=== PATIENT | female | born 1955 | race African-American/Black ===

== ENCOUNTER → 2016-10-17 | Outpatient (CLI) | payer OTHER ==
[~2016-10-17] MED LIST: ALPRAZOLAM PO; ALPRAZOLAM0.25 MG PO; ASPIRIN PO; ASPIRIN81 M2 PO; ATENOLOL PO; ATENOLOL50 MG PO; CENTRUM SILVER PO; COMPAZINE10 MG PO; DARVOCET-N 1001 TAB; DEPO-ESTRADIO5 MG/ML INJ; DICYCLOMINE HCL20 MG PO; GLUCOTROL PO; HCTZ PO; HORMONE SHOT; HYDROCODON-ACE1 EAC7 PO; IBUPROFEN PO; IMITREX PO; LEVAQUIN PO; LIPITOR40 MG PO; LODINE; LOMOTIL TABLET1 TAB PO; LOTREL; MEGA MULTI FOR1 EACH PO; MIDRIN CAPSULE1 CAP PO; MOTRIN; NAPROXEN PO; NEPTAZANE25 MG; NEXIUM PO; NITRO-DUR 0.1M0.1 MG; NITROGLYGERIN0.4 MG SL; NITROGYLCERIN SUBLINGUAL; PEPCID AC20 M2 PO; PRILOSEC40 MG; TOPAMAX PO; VICODIN 5/1 TAB 5/50 PO; VICODIN 5/500 T1 TAB PO; VIT E PO; VITAMIN D400 UNI2 PO; XANAX1 MG PO; ZOFRANODT PO; [UNRECOGNIZED DRUG - OTHER]
--- NOTE | ~2016-10-17 | MR17 ---
[facility] A Service of [facility] & [facility] RADIOLOGY TEXT RESULTS PATIENT: DEE VASQUEZ LOCATION: CMRI : 59 UNIT #: [id number] AGE: [address]: Erick Scales MD SEX: F ORDER DR: [id number] [facility] [address] [place], [place] [address] [id number] O MR#: [id number] Acc #: [id number] NAME: DEE VASQUEZ : 1955 SEX: F STUDY DATE/TIME: 10/17/2016 9:07 UNIT: CMRI ROOM: STUDY DESCRIPTION: MR Brain WWo Contrast Attending Physician: Erick Scales M.D. Referring Physician: Erick Scales M.D. Ordering Physician: Erick Scales M.D. Primary Care Physician: Erick Scales M.D. MRI CENTER REPORT This report is preliminary unless electronic signature is present. EXAM MRI brain with and without contrast HISTORY Memory loss, memory problems for 2 years worsening per patient and family. History of migraines for 3-4 years. No history of cancer. COMMENTS MRI of the brain was performed prior to and following intravenous administration of 14 mL of MultiHance. Comparison is from 03/09/2009. FINDINGS There is no evidence for a recent ischemic insult on the diffusion series. No Chiari-I malformation. Midline structures are unremarkable. No MRI evidence for a recent intracranial hemorrhage. There is some susceptibility seen at the periphery of the right cerebellar hemisphere which is probably due to remote blood product or mineral deposition. It is small and not associated mass effect. Comparison study does not include the susceptibility sequence. There is no extraaxial fluid collection. Motion limiting sequences were utilized due to the patient's difficulty cooperating. The major intracranial flow voids are maintained. There is extensive white matter disease as well as extensive signal abnormality in the basal ganglia and thalami. This is likely due to small vessel disease and it has progressed from 2008. Signal abnormality in the brainstem is also moderate bilateral. There is no particular pattern of volume loss of findings together would be most consistent with a multiinfarct type dementia. Please correlate further clinically. There is no hydrocephalus. Following contrast administration there is no pathologic intracranial enhancement or intracranial mass lesion. [facility] A Service of [facility] & [facility] RADIOLOGY TEXT RESULTS PATIENT: DEE VASQUEZ LOCATION: [facility] : 59 UNIT #: [id number] AGE: [address]: Erick Scales MD SEX: F ORDER DR: IMPRESSION 1. No evidence for a recent ischemic insult on the diffusion series. 2. Extensive probable sequelae of small vessel disease progressed from the study of 2008. Small amount of susceptibility right cerebellar hemisphere probably due to remote small hemorrhage or mineral deposition. Dictated by... Barbie Cochran M.D. THIS IS AN ELECTRONICALLY VERIFIED REPORT Barbie Cochran M.D. at 10/18/2016 8:25 AM YOANDY/rosalva TD: 10/18/2016 00:04 JOB #: [id number] MRI CENTER REPORT Page 1 of 1 COPY
[2016-10-17 11:00] LABS: POC - CREATININE 0.68 mg/dL (0.44-1.03); POC - GFR >60.0 mL/min (>60)
== END | disposition home or self-care (01) ==
LOC: CMRI 08:00
PROVIDERS: Family Medicine
DX: R41.3 Other amnesia (principal); N20.0 Calculus of kidney
CPT/HCPCS: 70553; 82565; A9577

== ENCOUNTER 2016-11-09 11:16 | Emergency (ER) | payer OTHER ==
--- NOTE | ~2016-11-09 | CT4 ---
[facility] A Service of [facility] & [facility] RADIOLOGY TEXT RESULTS PATIENT: DEE VASQUEZ LOCATION: CFTX : 59 UNIT #: [id number] AGE: [address]: Taisha Askew APRN SEX: F ORDER DR: [id number] [facility] [address] [place], [place] [address] [id number] E MR#: [id number] Acc #: [id number] NAME: DEE VASQUEZ : 1955 SEX: F STUDY DATE/TIME: 11/09/2016 12:33 UNIT: CFTX ROOM: STUDY DESCRIPTION: CT Abd and Pelv Wo Cont Attending Physician: Taisha Askew A.P.R.N. Referring Physician: Jackson Padilla M.D. Ordering Physician: Krys Small M.D. Primary Care Physician: Erick Scales M.D. MEDICAL IMAGING REPORT This report is preliminary unless electronic signature is present EXAM CT of abdomen and pelvis without contrast. INDICATIONS Low back pain radiating to left leg and left flank pain for a week. COMPARISON There is no comparison. TECHNIQUE Axial 3 mm images were obtained through the abdomen and pelvis without IV or oral contrast. This CT exam was performed with one or more of the following radiation dose reduction techniques: automatic exposure control, adjustment of mA and/or kV according to patient size, and iterative reconstruction. FINDINGS The lung bases are clear. The liver shows mild decreased density with a Hounsfield unit measurement of 29, where as the spleen is 43. The liver is slightly prominent. The gallbladder is normal. The spleen, pancreas and adrenal glands, and kidneys are normal except for a right renal cyst measuring 13 mm in diameter. There are no ureteral stones. The aorta is normal in size. There is no adenopathy. The bowel, including the appendix is normal. There is no evidence of diverticulitis. The bladder is normal. The uterus has been removed and there are no adnexal masses. There are degenerative changes throughout the lumbar spine. IMPRESSION 1. There were no urinary stones and no cause for the patient's pain is identified. 2. Mild diffuse fatty change throughout the flattened enlarged liver. 3. 13 mm right renal cyst. [facility]. [facility] A Service of [facility] & [facility] RADIOLOGY TEXT RESULTS PATIENT: DEE VASQUEZ LOCATION: [facility] : 59 UNIT #: [id number] AGE: [address]: Taisha Askew APRN SEX: F ORDER DR: 4. Otherwise, normal. Dictated by... Nico Stearns M.D. THIS IS AN ELECTRONICALLY VERIFIED REPORT Nico Stearns M.D. at 11/10/2016 7:03 AM CELE/osvaldo TD: 11/09/2016 21:39 JOB #: [id number] MEDICAL IMAGING REPORT Page 1 of 1 COPY
[~2016-11-09 11:16] MED LIST changes: -ATENOLOL50 MG PO; -CENTRUM SILVER PO; -DICYCLOMINE HCL20 MG PO; -HYDROCODON-ACE1 EAC7 PO; -IBUPROFEN PO; -LIPITOR40 MG PO; -MEGA MULTI FOR1 EACH PO; -PEPCID AC20 M2 PO; -VITAMIN D400 UNI2 PO; -XANAX1 MG PO
[2016-11-09 12:16] LABS: URINE SOURCE CLEAN CATCH
[2016-11-09 12:28] LABS: BASOPHIL# 0.1 X10e3 (0-0.3); BASOPHIL% 0.7 % (0-2.5); EOSINOPHIL# 0.3 X10e3 (0-0.7); EOSINOPHIL% 3.4 % (0.0-7.0); HEMATOCRIT 39.8 % (35.0-45.0); LYMPHOCYTE# 2.8 X10e3 (1.0-3.5); LYMPHOCYTE% 32.7 % (17.0-45.0); MEAN CELL VOLUME 94.9 FL (83-96); MEAN CORPUSCULAR HGB CONC 32.7 g/dL (30-36); MEAN PLATELET VOLUME 9.8 FL (6.5-11.5); MONOCYTE# 0.8 X10e3 (0-1.0); NEUTROPHIL# 4.6 X10e3 (1.5-7.1); NEUTROPHIL% 54.2 % (40-75); PLATELET COUNT 233 X10e3 (140-420); RED BLOOD COUNT 4.19 X10e (3.90-5.30); RED CELL DISTRIBUTION WIDTH 12.5 % (11.0-15.5); WHITE BLOOD COUNT 8.5 X10e3 (4.0-10.5)
[2016-11-09 12:30] LABS: URINE APPEARANCE CLEAR; URINE BILIRUBIN NEG (NEG); URINE BLOOD NEG (NEG); URINE COLOR YELLOW; URINE GLUCOSE >1000 MG/DL (NEG); URINE KETONE NEG (NEG); URINE LEUKOCYTE ESTERASE NEG (NEG); URINE NITRATE NEG (NEG); URINE PROTEIN NEG (NEG); URINE SPECIFIC GRAVITY 1.014 (1.003-1.035)
[2016-11-09 12:30] LABS: DIFF IND NO
[2016-11-09 12:34] LABS: CULTURE INDICATED? NO
[2016-11-09 12:48] LABS: BUN/CREATININE RATIO 13.75; CALCIUM SERUM 8.9 mg/dL (8.4-10.2); CREATININE SERUM 0.8 mg/dL (0.6-1.4); GLOM FILT RATE Estimated 93.6 mL/min (>60); POTASSIUM 3.5 mmol/L (3.5-5.1)
== END 2016-11-09 13:45 | disposition home or self-care (01) ==
LOC: CED 11:16 → CFTX 11:16
PROVIDERS: Nurse Practitioner
DX: M54.42 Lumbago with sciatica, left side (principal); M54.41 Lumbago with sciatica, right side; R10.9 Unspecified abdominal pain; X50.9XXA Other and unspecified overexertion or strenuous movements or postures, initial encounter
CPT/HCPCS: 36415; 74176; 80048; 81003; 82947; 85025; 99284; J1885

== ENCOUNTER 2016-12-21 13:51 | Observation (INO) | payer OTHER ==
[~2016-12-21] VITALS: Ht 160 cm; Wt 73.1 kg
--- NOTE | ~2016-12-21 | HP ---
Unit #: [id number] #: [id number] Patient: DEE VASQUEZ [id number] [facility]. [place], [place] [address] [id number] I MR#: [id number] NAME: DEE VASQUEZ. ROOM: 551 Age: 61 Sex: F Admission Date: 12/21/2016 : 1955 Attending Physician: Anastasia Medrano M.D. Primary Care Physician: Erick Scales M.D. HISTORY AND PHYSICAL CHIEF COMPLAINT Abdominal pain. DISCUSSION This is a 61-year-old female, with history of diabetes, dyslipidemia, hypertension, sickle cell trait, chronic back pain, anxiety, sleep apnea, migraine, alcohol abuse, tobacco abuse. She presented to the emergency room with chief complaint of having abdominal pain which she said is going on for one month. It got worse on 10 of December and is not improving, even having also nausea and she came to the emergency room today and eventually being admitted for further workup and evaluation. She was also found to have abnormal AST 44 and ALT 66, lipase 136. Initially she was admitted to surgery, [facility] but later on emergency room doctor told me that [facility] wants [facility] to admit the patient, and they will do a consult. She drinks alcohol on a daily basis. She denied chest pain. She denies nausea, vomiting, diarrhea, or any other complaints. Mainly she is pointing towards the epigastric pain radiating to right upper quadrant. PAST MEDICAL HISTORY 1. History of diabetes. 2. Dyslipidemia. 3. Hypertension. 4. Sickle cell trait. 5. Chronic back pain. 6. History of anxiety. 7. Obstructive sleep apnea not on CPAP. 8. History of migraine. 9. Tobacco abuse. 10. Alcohol abuse. PAST SURGICAL HISTORY 1. Hysterectomy. 2. Right carpal tunnel release. 3. Colonoscopy. SOCIAL HISTORY She smokes few cigars daily. She drinks alcohol on daily basis. She says she drinks wine and also she drinks beer on daily basis. Also, as per old records, she has history of marijuana, cocaine, and methamphetamine in the past. She declined at this time. FAMILY HISTORY No significant family history. Unit #: [id number] #: [id number] Patient: VASQUEZ,DEE A HOME MEDICATIONS Medications from home is the followin. Atenolol 50 mg twice daily 2. Lipitor 40 mg twice daily 3. Glucotrol 4 mg twice daily 4. Xanax 1 mg p.r.n. 5. Ibuprofen 500 mg p.r.n. 6. Hydrocodone 5/325 mg p.r.n. 7. Centrum Silver one tablet daily 8. Vitamin D 400 IU daily REVIEW OF SYSTEMS Negative except in history of present illness. PHYSICAL EXAMINATION GENERAL: Middle-aged female lying in the bed comfortably, currently not in any distress. She is alert, awake, and oriented x3, comfortable, not in any distress. VITAL SIGNS: Current vitals are following, temperature 98.6, heart rate 64, respiratory rate 16, and blood pressure 179/83. HEENT EXAMINATION: Pupils equal reactive to light and accommodation. Head is normocephalic and atraumatic. NECK: Supple. No jugular venous distention. HEART: S1 and S2, regular rhythm. LUNGS: Clear to auscultation bilaterally. No rhonchi. No wheezing. ABDOMEN: Soft, epigastric tenderness positive, no guarding, no rigidity. EXTREMITIES: Inspection normal. No cyanosis, no clubbing, and no edema. NEUROLOGIC: Alert and oriented x4. Cranial nerves II through XII intact. No focal neurologic deficit. PSYCH: Normal mood and affect. SKIN: Warm and dry. DIAGNOSTIC STUDIES LABORATORY: Laboratory workup is the following, troponin less than 0.05. Chemistries, sodium 136, potassium 3.8, chloride 101, glucose 136, BUN 14, creatinine 0.5. AST 46, ALT 66, lipase 136. Urinalysis is clear. White count 11, hemoglobin 13, hematocrit 41, platelets 244. IMAGING: CT of the abdomen is negative for acute finding. ASSESSMENT/PLAN 1. Abdominal pain mostly epigastric region with elevated lipase, differential diagnosis is acute pancreatitis vs peptic ulcer disease vs gallbladder disease, able to keep the patient n.p.o., IV Protonix, Zofran and morphine for pain control, and ask the [facility] to evaluate, will get ultrasound of the gallbladder in the morning, repeat lipase in the morning. 2. Abnormal LFT most likely secondary to alcoholic liver disease. 3. History of diabetes, hold p.o. medications and place on sliding scale. 4. Dyslipidemia. 5. Hypertension. 6. Sickle cell trait. 7. History of chronic back pain. 8. History of anxiety. 9. Obstructive sleep apnea. 10. Migraine. 11. Tobacco abuse. Unit #: [id number] #: [id number] Patient: DEE VASQUEZ 12. Alcohol abuse. 13. DVT prophylaxis. Will place the patient on Lovenox. Dictated by Subha Clark/uyen TD: 12/22/2016 12:06 JOB #: [id number] HISTORY AND PHYSICAL Page 1 of 1 X X HISTORY AND PHYSICAL
--- NOTE | ~2016-12-21 | OR ---
Unit #: [id number] #: [id number] Patient: DEE VASQUEZ [id number] [address] [address] [id number] I MR#: [id number] NAME: DEE VASQUEZ ROOM: 55 Date of Procedure: 12/24/2016 Admission Date: 12/21/2016 Surgeon: Chan Benitez Jr., M.D. : 1955 Attending Physician: Romain Beckford M.D. Primary Care Physician: Erick Scales M.D. OPERATIVE REPORT INDICATIONS FOR PROCEDURE The patient is a 61-year-old white female, who was admitted with complaining of mid epigastric abdominal pain. Workup so far has been negative with her gallbladder appearing to be normal. On workup, it was felt she could have occult ulcer disease. She is brought to the endoscopy suite at this time for upper endoscopy. PREOPERATIVE DIAGNOSIS Possible occult ulcer disease with midepigastric abdominal pain. POSTOPERATIVE DIAGNOSIS Normal exam. ANESTHESIA MAC anesthesia. PROCEDURE PERFORMED Flexible fiberoptic esophagogastroduodenoscopy. DESCRIPTION OF PROCEDURE The patient was positioned in Guerra position with left side down. After being given MAC anesthesia, the Olympus XQ scope was passed through the proximal esophagus. Entire esophagus was examined. There was no evidence of any significant esophagitis, no evidence of any stenosis. The scope was advanced through the GE junction, into the cardia, and down to the fundic and antral regions of the stomach and retroflexed back up to the area of the cardia. There was no evidence of hiatal hernia present. The LES was normal in appearance. The scope was then straightened and advanced down the distal stomach. The stomach distended well without evidence of rigidity. No evidence of any gastric ulcer disease and no evidence of any significant gastritis. The scope was advanced through the pylorus into the duodenal bulb and down to the second portion of the duodenum. The entire duodenal portion examination was within normal limits. The pylorus appeared to be slightly stenotic, but no evidence of any ulcerations. Second portion of the duodenum appeared normal. The first portion also appeared normal. The scope was slowly removed. The patient tolerated the procedure well and discharged back to floor in satisfactory condition. Dictated by... Chan Benitez Jr., M.D. Unit #: [id number] #: [id number] Patient: DEE VASQUEZ Raza YOUSIF/rich TD: 12/25/2016 01:13 JOB #: [id number] OPERATIVE REPORT Page 1 of 1 X Chan Benitez MD PROCEDURE OPERATIVE NOTE
--- NOTE | ~2016-12-21 | DS ---
Unit #: [id number] #: [id number] Patient: DEE VASQUEZ [id number] [address] [place], [place] [address] [id number] I MR#: [id number] NAME: DEE VASQUEZ ROOM: 551 Age: 61 Sex: F Admission Date: 12/21/2016 : 1955 Discharge Date: 12/24/2016 Attending Physician: Romain Beckford M.D. Primary Care Physician: Erick Scales M.D. DISCHARGE SUMMARY PERTINENT HISTORY AND HOSPITAL COURSE The patient is a 61-year-old woman with a history of diabetes mellitus, who presents to the emergency room with symptoms of abdominal pain, intermittent, ongoing over the past month. During her admission, the patient underwent a CAT scan of the abdomen that demonstrated no acute abnormality in the abdomen and pelvis, more diverticulosis without evidence of diverticulitis. The patient underwent a HIDA scan, which was normal. EGD which was normal. At discharge, the patient will be discharged on Bentyl mg three times a day as needed for abdominal cramps. At discharge, the patient's vitals were stable. Gross pelvic exam normal and no other complaints. DISCHARGE DIAGNOSES 1. Dyspepsia. 2. Gastroesophageal reflux disease. 3. Diabetes mellitus. DISCHARGE MEDICATIONS Atenolol 50 mg p.o. b.i.d., Lipitor 40 mg p.o. once daily, Glucotrol p.o. b.i.d., Xanax 1 mg p.o. t.i.d. p.r.n. for anxiety, hydrocodone 5/325 mg p.o. t.i.d. p.r.n. for anxiety, vitamin D 400 units once daily, Bentyl p.o. t.i.d. p.r.n. for abdominal cramps, and Pepcid 20 mg tablet one p.o. once daily. CONSULTATION [facility]. DISCHARGE INSTRUCTIONS Follow up with primary care physician. Dictated by... Subha Roberts/rich TD: 12/28/2016 03:44 JOB #: [id number] Unit #: [id number] #: [id number] Patient: DEE VASQUEZ A DISCHARGE SUMMARY Page 1 of 1 X X DISCHARGE SUMMARY
--- NOTE | ~2016-12-21 | US67 ---
[facility] A Service of [facility] / [facility] RADIOLOGY TEXT RESULTS PATIENT: DEE VASQUEZ LOCATION: [place] [address]- : [birth year] UNIT #: [id number] AGE: [address]: TATYANA RODRÍGUEZUJ V SEX: F ORDER DR: [id number] [facility] [address] [place], [place] [address] [id number] I MR#: [id number] Acc #: [id number] NAME: DEE VASQUEZ. : 1955 SEX: F STUDY DATE/TIME: 12/22/2016 9:42 UNIT: [facility] ROOM: [facility] STUDY DESCRIPTION: US Gallbladder Attending Physician: Anastasia Medrano M.D. Ordering Physician: Isra Ball D.O. Primary Care Physician: Eirck Scales M.D. MEDICAL IMAGING REPORT This report is preliminary unless electronic signature is present EXAM Gallbladder ultrasound COMPARISON CT abdomen and pelvis dated December 21, 2016 and abdominal ultrasound dated July 27, 2007. INDICATIONS A 61 old female with right upper quadrant abdominal pain intermittently over last month, associate with nausea and emesis. Episodes have worsened in the last 2 weeks. FINDINGS Visualized portions of the pancreas are grossly unremarkable. The liver appears coarse. Portal architecture is not well seen. Hepatic length is 17.3 cm. The main portal vein is patent. The liver is also echogenic relative to the right kidney, most consistent with steatosis. Right kidney is normal in size and appearance aside for a single hypoechoic lesion with through transmission measuring 1 cm x 0.9 cm x 1.3 cm with no internal color flow. This has density consistent with a benign cyst on CT of yesterday. The gallbladder is normal. There is no pericholecystic fluid. Normal common bile duct caliber of 2 mm. IMPRESSION 1. Hepatomegaly with hepatic steatosis. No evidence of cirrhosis. No evidence of acute cholecystitis. No cholelithiasis. 2. Normal biliary caliber. 3. Benign cyst in the superior pole right kidney. Dictated by... [facility] A Service of [facility] / [facility] RADIOLOGY TEXT RESULTS PATIENT: DEE VASQUEZ LOCATION: [place] [address] : [birth year] UNIT #: [id number] AGE: [address]: VINCE RODRÍGUEZ V SEX: F ORDER DR: Kobi Reyes M.D. THIS IS AN ELECTRONICALLY VERIFIED REPORT Kobi Reyes M.D. at 12/26/2016 8:09 AM Patel TD: 12/22/2016 14:55 JOB #: [id number] MEDICAL IMAGING REPORT Page 1 of 1 COPY
--- NOTE | ~2016-12-21 | CT2 ---
[facility] A Service of [place] [facility] RADIOLOGY TEXT RESULTS PATIENT: DEE VASQUEZ LOCATION: [facility] 55- : 59 UNIT #: [id number] AGE: [address]: VINCE RODRÍGUEZ V SEX: F ORDER DR: [id number] [facility] [address] [place], [place] [address] [id number] I MR#: [id number] Acc #: [id number] NAME: DEE VASQUEZ. : 1955 SEX: F STUDY DATE/TIME: 12/21/2016 18:24 UNIT: [facility] ROOM: [facility] STUDY DESCRIPTION: CT Abd and Pelv W Cont Attending Physician: Vince Rodríguez M.D. Ordering Physician: Isra Ball D.O. Primary Care Physician: Erick Scales M.D. MEDICAL IMAGING REPORT This report is preliminary unless electronic signature is present REVISED REPORT SEE ADDENDUM EXAM CT abdomen and pelvis without IV contrast COMPARISON November 09, [address] chest dated October 31, 2005. INDICATION 61-year-old female with diffuse abdominal pain for [address] exam was performed with one or more of the following radiation dose reduction techniques: automatic control, adjustment of mA and/or kV according to patient size, and iterative reconstruction. FINDINGS Axial CT imaging of the abdomen and pelvis was performed after IV administration of 100 mL of Isovue-370. Coronal and sagittal reformats were constructed. There is small fat-containing umbilical hernia. Bulky degenerative facet disease is seen multiple levels of the lower lumbar spine. No acute fractures or suspicious osseous lesions. Small posterior disc protrusions at L3-4 through L5-S1. No acute findings in the imaged lower chest. The liver, gallbladder, pancreas and adrenal glands are within normal limits. There are calcified splenic granulomas. There is a tiny low-density lesion mid pole of the left kidney which is stable from 2005, and consistent with a benign cyst. In the superior pole of the right kidney there is a simple cyst measuring 1.4 cm. Focal scar is seen in the periphery of the mid pole of the right kidney. No hydronephrosis or hydroureter. Urinary bladder is fluid distended but otherwise unremarkable. There has been prior hysterectomy. There are bilateral pelvic phleboliths. No evidence of renal or ureteral calculus. No STS. [facility] A Service of [facility] RADIOLOGY TEXT RESULTS PATIENT: DEE VASQUEZ LOCATION: [place] [address] : [birth year] UNIT #: [id number] AGE: [address]: VINCE RODRÍGUEZ V SEX: F ORDER DR: adnexal masses. Normal bowel caliber. Appendix is normal. There are sigmoid diverticula without evidence of acute diverticulitis. No evidence of bowel obstruction. No free fluid or pneumoperitoneum. No adenopathy. Abdominal aorta is normal in course and caliber, with patency of its main branches. No evidence of venous thrombosis. IMPRESSIONS 1. No acute abnormality in the abdomen, pelvis or imaged lower chest. 2. Sigmoid diverticulosis without evidence of acute diverticulitis. 3. Diffuse moderate degenerative changes of the lower lumbar spine as described in the body of the report. 4. Benign renal cyst. 5. Prior hysterectomy. 6. Fluid distension of the urinary bladder. No CT findings of acute cystitis. Dictated by... Kobi Reyes M.D. THIS IS AN ELECTRONICALLY VERIFIED REPORT Kobi Reyes M.D. at 12/26/2016 8:18 AM VANESA/tommy TD: 12/22/2016 00:11 JOB #: [id number] ADDENDUM There is actually, somewhat increased enhancement pattern geographically at the gallbladder fossa adjacent to the gallbladder and the gallbladder itself appears normal. This is a nonspecific finding which may be due to aberrant venous drainage of the gallbladder Dictated by... Kobi Reyes M.D. THIS IS AN ELECTRONICALLY VERIFIED REPORT Kobi Reyes M.D. at 12/28/2016 6:45 PM VANESA/tommy TD: 12/22/2016 00:23 JOB #: [id number] CC: Sovera/invision Please Delete MEDICAL IMAGING REPORT Page 1 of 1 COPY
--- NOTE | ~2016-12-21 | NM22 ---
[facility] A Service of [facility] RADIOLOGY TEXT RESULTS PATIENT: DEE VASQUEZ LOCATION: [place] [address] : [birth year] UNIT #: [id number] AGE: [address]: VINCE RODRÍGUEZ V SEX: F ORDER DR: [id number] [place] [address] [facility]. [place], [place] [address] [id number] I MR#: [id number] Acc #: [id number] NAME: DEE VASQUEZ : 1955 SEX: F STUDY DATE/TIME: 12/23/2016 10:13 UNIT: [facility] ROOM: [facility] STUDY DESCRIPTION: NM Hepatobiliary W GB Pharm Attending Physician: Vince Rodríguez Ordering Physician: Chan Benitez Jr., M.D. Primary Care Physician: Erick Scales M.D. MEDICAL IMAGING REPORT This report is preliminary unless electronic signature is present EXAM Hepatobiliary scan, 12/23 INDICATIONS Abdominal pain and spasms with diarrhea, nausea and vomiting and bloating. Symptoms started on December 10 of this year. FINDINGS Imaging was obtained of the abdomen for 60 minutes after the IV administration of 4.8 mCi of technetium 99m - Choletec. Comparison made with gallbladder ultrasound from 12/22/2016. There is symmetric uptake by the liver. There is prompt excretion in the biliary system and small bowel within 30 minutes. Gallbladder activity is also seen within 30 minutes. There is no evidence of acute cholecystitis. Following the IV administration of 1.5 mcg of Kinevac, gallbladder ejection fraction is normal at 68%. IMPRESSION Normal hepatobiliary scan. Normal gallbladder ejection fraction of 68% after Kinevac stimulation. Dictated by... Ken Lira Jr., M.D. THIS IS AN ELECTRONICALLY VERIFIED REPORT Ken Lira Jr., M.D. at 12/24/2016 7:10 AM PABLOK/genevieve TD: 12/23/2016 22:39 JOB #: [id number] MEDICAL IMAGING REPORT [facility] A Service of [facility] RADIOLOGY TEXT RESULTS PATIENT: DEE VASQUEZ LOCATION: [facility] [id number] : [birth year] UNIT #: [id number] AGE: [address]: VINCE RODRÍGUEZ V SEX: F ORDER DR: Page 1 of 1 COPY
[2016-12-21 16:02] LABS: URINE SOURCE CLEAN CATCH
[2016-12-21 16:03] LABS: BASOPHIL# 0.1 X10e3 (0-0.3); BASOPHIL% 0.8 % (0-2.5); EOSINOPHIL# 0.2 X10e3 (0-0.7); EOSINOPHIL% 2.1 % (0.0-7.0); HEMATOCRIT 41.5 % (35.0-45.0); HEMOGLOBIN 13.6 gm/dL (12.0-16.0); LYMPHOCYTE# 3.2 X10e3 (1.0-3.5); LYMPHOCYTE% 28.7 % (17.0-45.0); MEAN CELL VOLUME 92.4 FL (83-96); MEAN CORPUSCULAR HEMOGLOBIN 30.3 PG (28-34); MEAN CORPUSCULAR HGB CONC 32.8 g/dL (30-36); MEAN PLATELET VOLUME 9.7 FL (6.5-11.5); MONOCYTE# 0.8 X10e3 (0-1.0); MONOCYTE% 7.6 % (3.0-12.0); NEUTROPHIL# 6.8 X10e3 (1.5-7.1); NEUTROPHIL% 60.8 % (40-75); PLATELET COUNT 244 X10e3 (140-420); RED BLOOD COUNT 4.49 X10e (3.90-5.30); RED CELL DISTRIBUTION WIDTH 12.6 % (11.0-15.5); WHITE BLOOD COUNT 11.1 X10e3 (4.0-10.5)
[2016-12-21 16:08] LABS: DIFF IND NO
[2016-12-21 16:09] LABS: URINE APPEARANCE CLEAR; URINE BILIRUBIN NEG (NEG); URINE BLOOD NEG (NEG); URINE COLOR YELLOW; URINE GLUCOSE NEG (NEG); URINE KETONE NEG (NEG); URINE LEUKOCYTE ESTERASE NEG (NEG); URINE NITRATE NEG (NEG); URINE PROTEIN 2+ (NEG); URINE UROBILINOGEN 0.2 MG/DL (NEG)
[2016-12-21 16:13] LABS: URBCS1 AUWI 0-2 /[HPF] (0-2); URINE BACTERIA AUWI NEG (NEGATIVE); URINE SQUAMOUS EPITHELIAL CELL NONE SEEN /[HPF]; UWBCS1 AUWI 0-2 (0-5)
[2016-12-21 16:17] LABS: CULTURE INDICATED? NO
[2016-12-21 17:52] LABS: ALBUMIN SERUM 4.6 g/dL (3.5-5.0); BILIRUBIN, DIRECT 0.1 mg/dL (0.0-0.2); BILIRUBIN,INDIRECT 0.8 mg/dL (0.0-0.9); BILIRUBIN,TOTAL 0.9 mg/dL (0.2-2.0); CALCIUM SERUM 9.6 mg/dL (8.4-10.2); CREATININE SERUM 0.5 mg/dL (0.6-1.4); GLOM FILT RATE Estimated 122.8 mL/min (>60); POTASSIUM 3.8 mmol/L (3.5-5.1); PROTEIN TOTAL SERUM 7.9 g/dL (6.0-8.3)
[2016-12-21 19:35] LABS: POC - CKMB 1.3 ng/mL (0.0-7.9); POC - TROPONIN <0.05 ng/mL (<=0.05)
[2016-12-21] MEDS ORDERED: ATENOLOL50 MG PO (21:01)
[2016-12-21] MEDS ORDERED: LIPITOR40 MG PO (21:02)
[2016-12-21] MEDS ORDERED: GLUCOTROL PO (21:02)
[2016-12-21] MEDS ORDERED: XANAX1 MG PO (21:03)
[2016-12-21] MEDS ORDERED: IBUPROFEN PO (21:04)
[2016-12-21] MEDS ORDERED: HYDROCODON-ACE1 EAC7 PO (21:04)
[2016-12-21] MEDS ORDERED: MEGA MULTI FOR1 EACH PO (21:05)
[2016-12-21] MEDS ORDERED: CENTRUM SILVER PO (21:06)
[2016-12-21] MEDS ORDERED: VITAMIN D400 UNI2 PO (21:07)
[2016-12-22 07:30] LABS: BASOPHIL# 0.1 X10e3 (0-0.3); BASOPHIL% 0.6 % (0-2.5); EOSINOPHIL# 0.1 X10e3 (0-0.7); EOSINOPHIL% 1.2 % (0.0-7.0); HEMATOCRIT 38.8 % (35.0-45.0); LYMPHOCYTE# 2.3 X10e3 (1.0-3.5); LYMPHOCYTE% 28.6 % (17.0-45.0); MEAN CELL VOLUME 93.6 FL (83-96); MEAN CORPUSCULAR HEMOGLOBIN 31.4 PG (28-34); MEAN CORPUSCULAR HGB CONC 33.6 g/dL (30-36); MEAN PLATELET VOLUME 9.9 FL (6.5-11.5); MONOCYTE# 0.6 X10e3 (0-1.0); MONOCYTE% 7.6 % (3.0-12.0); PLATELET COUNT 218 X10e3 (140-420); RED BLOOD COUNT 4.14 X10e (3.90-5.30); RED CELL DISTRIBUTION WIDTH 12.6 % (11.0-15.5); WHITE BLOOD COUNT 8.1 X10e3 (4.0-10.5)
[2016-12-22 07:37] LABS: DIFF IND NO
[2016-12-22 08:08] LABS: ALBUMIN SERUM 4.1 g/dL (3.5-5.0); BILIRUBIN,TOTAL 0.6 mg/dL (0.2-2.0); BUN/CREATININE RATIO 12.85; CALCIUM SERUM 8.6 mg/dL (8.4-10.2); CREATININE SERUM 0.7 mg/dL (0.6-1.4); GLOM FILT RATE Estimated 109.9 mL/min (>60); POTASSIUM 3.6 mmol/L (3.5-5.1); PROTEIN TOTAL SERUM 7.2 g/dL (6.0-8.3)
[2016-12-22 08:15] LABS: THYROID STIMULATING HORMONE 2.61 uIU/ml (0.34-5.60)
[2016-12-22 08:22] LABS: FREE THYROXIN (T4) 0.86 ng/dL (0.58-1.64)
[2016-12-23 07:51] LABS: HEMATOCRIT 41.1 % (35.0-45.0); HEMOGLOBIN 13.7 gm/dL (12.0-16.0); MEAN CELL VOLUME 93.2 FL (83-96); MEAN CORPUSCULAR HGB CONC 33.3 g/dL (30-36); MEAN PLATELET VOLUME 9.9 FL (6.5-11.5); RED BLOOD COUNT 4.41 X10e (3.90-5.30); RED CELL DISTRIBUTION WIDTH 12.8 % (11.0-15.5); WHITE BLOOD COUNT 8.9 X10e3 (4.0-10.5)
[2016-12-23 08:34] LABS: BILIRUBIN,TOTAL 0.6 mg/dL (0.2-2.0); CALCIUM SERUM 8.9 mg/dL (8.4-10.2); CREATININE SERUM 0.7 mg/dL (0.6-1.4); GLOM FILT RATE Estimated 109.9 mL/min (>60); POTASSIUM 3.7 mmol/L (3.5-5.1); PROTEIN TOTAL SERUM 7.3 g/dL (6.0-8.3)
[2016-12-24] MEDS ORDERED: PEPCID AC20 M2 PO (14:01)
[2016-12-24] MEDS ORDERED: DICYCLOMINE HCL20 MG PO (14:01)
== END 2016-12-24 17:00 | disposition home or self-care (01) ==
LOC: CED 13:51 → CEDOF 20:45 → C5B 20:45 → CEDOF 21:56 → CED 21:56 → CEDOF 12-22 06:37 → C5B 12-22 10:08 → CEDOF 12-22 10:08 → C5B 12-23 10:14
PROVIDERS: Emergency Medicine; Surgery
PROC: 0DJ08ZZ Inspection of Upper Intestinal Tract, Via Natural or Artificial Opening Endoscopic (ICD-10-PCS; principal; 2016-12-21)
DX: R10.13 Epigastric pain (principal); K76.0 Fatty (change of) liver, not elsewhere classified; R16.0 Hepatomegaly, not elsewhere classified; K57.30 Diverticulosis of large intestine without perforation or abscess without bleeding; N28.1 Cyst of kidney, acquired; M51.36 Other intervertebral disc degeneration, lumbar region; K82.9 Disease of gallbladder, unspecified; G47.33 Obstructive sleep apnea (adult) (pediatric); E78.5 Hyperlipidemia, unspecified; I10 Essential (primary) hypertension; E11.9 Type 2 diabetes mellitus without complications; Z79.84 Long term (current) use of oral hypoglycemic drugs; D57.3 Sickle-cell trait; G43.909 Migraine, unspecified, not intractable, without status migrainosus; R01.1 Cardiac murmur, unspecified; M54.30 Sciatica, unspecified side; F32.9 Major depressive disorder, single episode, unspecified; Z79.1 Long term (current) use of non-steroidal anti-inflammatories (NSAID); F10.10 Alcohol abuse, uncomplicated; Z79.899 Other long term (current) drug therapy; F17.290 Nicotine dependence, other tobacco product, uncomplicated; Z90.710 Acquired absence of both cervix and uterus; Z98.890 Other specified postprocedural states
CPT/HCPCS: 36415; 74177; 76705; 78227; 80048; 80053; 80076; 81003; 82150; 82553; 82947; 83690; 84439; 84443; 84484; 85025; 85027; 86592; 96365; 96366; 96372; 96374; 96375; 96376; 99285; A9537; C9113; G0378; J0360; J1650; J1815; J2250; J2270; J2405; J2550; J2805; J3411; J7042; Q9967